=== PATIENT | female | born 1960 | race Caucasian/White ===

== ENCOUNTER → 2016-12-16 | Outpatient (CLI) | payer BC | LOC: MW.CHIM 07:48 | PROVIDERS: ATTEND Internal Medicine | DX: E78.00 Pure hypercholesterolemia, unspecified (principal); E03.9 Hypothyroidism, unspecified; K21.9 Gastro-esophageal reflux disease without esophagitis | CPT/HCPCS: 36415; 80061; 80076; 84439; 84443 ==

== ENCOUNTER → 2017-02-04 | Outpatient (CLI) | payer BC ==
--- NOTE | 2017-02-04 17:18 | MY ---
EXAMINATION: Bilateral digital mammography utilizing CAD. HISTORY: Screening exam. Comparison is made to previous studies dated 01/25/2016, 09/26/2014, 013. FINDINGS: Bilateral extremity dense breast tissue. There are stable calcifications noted bilateral ly. There is a single view asymmetry noted within the subareolar to slightly inner right breast. Oth erwise, no suspicious calcifications, masses or architectural distortions. No pathologic appearing lymph nodes, no abnormal skin thickening or nipple inversion. Other CAD highlighted regions appear normal at this time. IMPRESSION: BI-RADS category 0 - Incomplete study. Right breast diagnostic is needed for further evaluation. THE FALSE-NEGATIVE RATE OF MAMMOGRAM IS APPROXIMATELY 10%. MANAGEMENT OF A PALPABLE ABNORMALITY MUST BE BASED UPON CLINICAL GROUNDS. SENSITIVITY FOR DETECTION OF ABNORMALITIES IN DENSE BREASTS IS LOW. NOTE: A letter will be sent to the patient regarding findings. [facility] -- ALEKSANDR Yeboah [phone] - FAX [phone]
== END | disposition home or self-care (01) ==
LOC: MW.MAM 09:08
PROVIDERS: ATTEND Internal Medicine
DX: Z12.31 Encounter for screening mammogram for malignant neoplasm of breast (principal)
CPT/HCPCS: G0202; G0202-26

== ENCOUNTER → 2017-02-17 | Outpatient (CLI) | payer BC, OTHER ==
--- NOTE | 2017-02-17 14:18 | US ---
EXAMINATION: Right digital diagnostic mammogram and targeted ultrasound. HISTORY: Abnormal screening. Comparison is made to previous studies dated 02/04/2017, 01/25/2016, 015. FINDINGS: A right LM view was obtained and a single compression image was obtained in the CC projec tion. The previously visualized single view asymmetry within the deep subareolar right breast on the CC view minimally persists with spot compression. Numerous round, fairly well circumscribed asymmet ankur are noted within the very dense breast tissue. There are several groupings of stable calcificat ions noted within the right breast. Sonographic images of the right breast demonstrated numerous hypoechoic areas. Several ill-defined, however, continuous appearing hypoechoic areas are noted within the subareolar to 12 o'clock positio n. These demonstrate no internal color Doppler flow and demonstrate mild posterior acoustic enhancem ent. There is an oval cystic hypoechoic structure at the 12 o'clock position measuring 1.1 x 0.5 cm with an adjacent 0.9 x 0.7 cm cystic space. There is a rounded 1 x 0.9 cm hypoechoic mass with posterior acoustic enhancement at the 12 o'clock to 1 o'clock position of the right breast which likely corres ponds to the mammogram abnormality. This demonstrates posterior acoustic enhancement and no internal color Doppler flow. IMPRESSION: BI-RADS category III - probably benign. Extensive fibrocystic changes with several comp pricila cystic structures within the right breast. Followup in six months with a right breast diagnostic study is recommended. Alternatively, these are accessible to ultrasound-guided aspiration/biopsy. THE FALSE-NEGATIVE RATE OF MAMMOGRAM IS APPROXIMATELY 10%. MANAGEMENT OF A PALPABLE ABNORMALITY MUST BE BASED UPON CLINICAL GROUNDS. SENSITIVITY FOR DETECTION OF ABNORMALITIES IN DENSE BREASTS IS LOW. NOTE: A letter will be sent to the patient regarding findings. [facility] -- ALEKSANDR Yeboah [phone] - FAX [phone]
== END ==
LOC: MW.MAM 09:54
PROVIDERS: ATTEND Internal Medicine
DX: R92.8 Other abnormal and inconclusive findings on diagnostic imaging of breast (principal)
CPT/HCPCS: 76642; G0206

== ENCOUNTER → 2017-02-19 | Outpatient (CLI) | payer BC, OTHER | END | disposition home or self-care (01) | LOC: MW.CHIM 10:41 | PROVIDERS: ATTEND Internal Medicine | DX: E78.00 Pure hypercholesterolemia, unspecified (principal); E03.9 Hypothyroidism, unspecified; R92.8 Other abnormal and inconclusive findings on diagnostic imaging of breast | CPT/HCPCS: 36415; 85025; 85730 ==

== ENCOUNTER → 2017-03-03 | Outpatient (CLI) | payer BC, OTHER ==
--- NOTE | 2017-03-03 13:42 | US ---
EXAMINATION: Ultrasound guided right breast cyst aspiration HISTORY: Abnormal findings COMPARISON: Ultrasound dated 02/17/2017 TECHNIQUE: The procedure, risks, and benefits were discussed with the patient. Informed consent was obtained. The overlying area was sterilely prepped and draped. 1% lidocaine was administered for loc al anesthesia. Using ultrasound guidance the small 1 cm complex cyst noted at the T2 3:00 position o f the right breast was aspirated using a 22-gauge spinal needle. The cyst completely resolved follow ing aspiration. This contained a right parietal material which was sent for cytology. Additional sma ll cyst was aspirated at the approximate 12:00 position. This contained light green cloudy material which was discarded. IMPRESSION: Successful ultrasound-guided right breast cyst aspiration.
== END ==
LOC: MW.US 09:25
PROVIDERS: ATTEND Internal Medicine
DX: R92.8 Other abnormal and inconclusive findings on diagnostic imaging of breast (principal)
CPT/HCPCS: 19000-RT; 76942-26-RT; 76942-RT; 88173

== ENCOUNTER 2017-06-18 16:34 | Observation (INO) | payer BC ==
[2017-06-18] MEDS ORDERED: Sodium Chloride 0.9% 2.5 ML Syringe FLUSH PRN (16:44)
[2017-06-18] MEDS ORDERED: Sodium Chloride 0.9% 10 ML Syringe FLUSH PRN (16:44)
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
[2017-06-18] MEDS ORDERED: Aspirin 325 MG Tab PO ONE (16:56)
[2017-06-18] MEDS ORDERED: Famotidine 20 MG/2 ML SDV IVPUSH ONE (17:35)
[2017-06-18 17:56] LABS: CHLORIDE,CL 108 mmol/L (98-110); SODIUM,NA 143 mmol/L (136-146)
[2017-06-18] MEDS ORDERED: Albuterol 6.7 GM Inhaler INH PRN (19:57)
[2017-06-18] MEDS ORDERED: Acetaminophen 325 MG Tab PO PRN (19:58)
[2017-06-18] MEDS ORDERED: Ondansetron 4 MG/2 ML SDV IVPUSH PRN (19:58)
[2017-06-18] MEDS ORDERED: Magnesium Sulfate/Water 2 GM in Premix Bag 1 BAG IV ONE (20:00)
[2017-06-18] MEDS ORDERED: Potassium Chloride 20 MEQ Tab.ER PO ONE (20:00)
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
[2017-06-19] MEDS ORDERED: Levothyroxine 50 MCG Tab PO SCH (07:30)
[2017-06-19] MEDS ORDERED: Pantoprazole 40 MG Tab.CR PO SCH (09:00)
--- NOTE | 2017-06-19 09:21 | CR ---
EXAM DATE: 06/18/17 PATIENT'S AGE: 57 Patient: AYDEN CABRERA Facility: [place], [place] Site . Site : [id number] Study: XRay Chest [id number]/31/2017 5:21:35 PM Ordering Physician: Doctor Oh Final Report: INDICATION: Irregular heart rate. TECHNIQUE: Chest radiograph 1 view COMPARISON: 03/17/2017. FINDINGS: Cardiovascular and mediastinum: The heart silhouette is normal in size and morphology. The mediastinum is normal in appearance. Lungs and pleural spaces: Both lungs are unremarkable in appearance. No sign of pleural effusion seen. No pneumothorax is identified. Bones and soft tissues: No significant findings. IMPRESSION: 1. No acute cardiopulmonary disease is seen. Dictated by Rc Harris MD @ 06/18/2017 6:12:51 PM Dictated by: Rc Harris MD @ 06/18/2017 18:12:57 (Electronic Signature) Report Signed by Proxy. [facility]
[2017-06-19] MEDS ORDERED: Sodium Chloride 0.9% 500 ML IV SCH (11:30)
[2017-06-19] MEDS ORDERED: Fluticasone Propionate Nasal Spray 16 GM Bottle NASBOTH SCH (12:45)
[2017-06-19 13:53] VITALS: BP 109/59
== END 2017-06-19 13:55 | disposition home or self-care (01) ==
LOC: MW.ED 16:34 → MW.MS 17:36 → UNDOADMOB 17:36
PROVIDERS: ADMIT Internal Medicine; ATTEND Internal Medicine
DX: R00.2 Palpitations (principal); I49.3 Ventricular premature depolarization; I48.91 Unspecified atrial fibrillation; J45.909 Unspecified asthma, uncomplicated; K59.09 Other constipation; E03.9 Hypothyroidism, unspecified; Z88.1 Allergy status to other antibiotic agents; Z88.8 Allergy status to other drugs, medicaments and biological substances; Z91.048 Other nonmedicinal substance allergy status; Z79.899 Other long term (current) drug therapy; Z98.84 Bariatric surgery status; Z90.711 Acquired absence of uterus with remaining cervical stump; Z98.890 Other specified postprocedural states; Z82.49 Family history of ischemic heart disease and other diseases of the circulatory system
CPT/HCPCS: 36415; 71010; 80053; 81001; 83735; 84484; 85025; 87086; 93005; 96374; 96375; 99285; A9270; G0378; J2405; J3475; J7040; 99282

== ENCOUNTER 2017-10-28 14:04 | Emergency (ER) | payer BC ==
[2017-10-28] MEDS ORDERED: Sodium Chloride 0.9% 2.5 ML Syringe FLUSH PRN (14:17)
[2017-10-28] MEDS ORDERED: Sodium Chloride 0.9% 10 ML Syringe FLUSH PRN (14:17)
[2017-10-28] MEDS ORDERED: Aspirin 81 MG Tab.Chew PO ONE (14:17)
[2017-10-28 15:03] LABS: CHLORIDE,CL 108 mmol/L (98-110); SODIUM,NA 142 mmol/L (136-146)
[2017-10-28] MEDS ORDERED: Ondansetron 4 MG/2 ML SDV IVPUSH ONE (15:40)
--- NOTE | 2017-10-28 15:47 | CR ---
EXAMINATION: Portable chest radiograph. HISTORY: Shortness of breath. FINDINGS: The trachea is midline. The cardiomediastinal silhouette is within normal limits. No pulmonary infilt rates, effusions or pneumothorax. Osseous structures appear unremarkable. IMPRESSION: No acute cardiopulmonary process.
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
[2017-10-28 17:43] VITALS: BP 114/66
== END 2017-10-28 17:28 | disposition home or self-care (01) ==
LOC: MW.ED 14:04
DX: R11.2 Nausea with vomiting, unspecified (principal); R19.7 Diarrhea, unspecified; E03.9 Hypothyroidism, unspecified; Z88.8 Allergy status to other drugs, medicaments and biological substances; Z79.899 Other long term (current) drug therapy; Z88.1 Allergy status to other antibiotic agents
CPT/HCPCS: 36415; 71045; 80053; 84443; 84484; 85025; 96374; 99285; A9270; J2405; 99284

== ENCOUNTER 2018-04-30 21:49 | Emergency (ER) | payer BC ==
[2018-04-30] MEDS ORDERED: Sodium Chloride 0.9% 1,000 ML IV ONE (22:03)
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
[2018-04-30 22:59] LABS: CHLORIDE,CL 103 mmol/L (98-107); SODIUM,NA 137 mmol/L (136-145)
[2018-04-30] MEDS ORDERED: HYDROmorphone 1 MG/ML Syringe IVPUSH ONE (23:36)
[2018-04-30] MEDS ORDERED: Ondansetron 4 MG/2 ML SDV IVPUSH ONE (23:38)
[2018-05-01 00:10] VITALS: BP 132/76
--- NOTE | 2018-05-03 15:06 | CR ---
EXAM DATE: 04/30/18 PATIENT'S AGE: 58 Patient: AYDEN CABRERA Facility: [place], [place] Site . Site : 1960 Study: XRay Chest [id number]/13/2018 10:38:56 PM Ordering Physician: Jorden Silva Final Report: INDICATION: Fever TECHNIQUE: Chest radiograph 1 view COMPARISON: 10/28/2017 FINDINGS: Moderate degradation of image quality noted due to body habitus. Mediastinum: The mediastinum is normal in appearance. The heart silhouette is normal in size and morphology. Left port catheter has been placed with the tip in the SVC. Lungs: Both lungs are unremarkable in appearance. No sign of pleural effusion seen. No pneumothorax is identified. Bones and soft tissue: Unremarkable for age. IMPRESSION: 1. No acute cardiopulmonary disease is seen. Dictated by Major Cavazos MD @ 04/30/2018 10:44:06 PM Dictated by: Major Cavazos MD @ 04/30/2018 22:44:12 (Electronic Signature) Report Signed by Proxy. MARY IMOGENE [facility]ASSETT HOSPITALVernon
== END 2018-05-01 00:11 | disposition home or self-care (01) ==
LOC: MW.ED 21:49
DX: D70.9 Neutropenia, unspecified (principal); R50.81 Fever presenting with conditions classified elsewhere; E03.9 Hypothyroidism, unspecified; Z88.1 Allergy status to other antibiotic agents; Z79.899 Other long term (current) drug therapy; Z85.9 Personal history of malignant neoplasm, unspecified
CPT/HCPCS: 36415; 71045; 80053; 85025; 87040; 96374; 96375; 99283; J1170; J1642; J2405; J7040

== ENCOUNTER 2018-11-08 11:04 | Emergency (ER) | payer BC ==
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
[2018-11-08] MEDS ORDERED: diphenhydrAMINE 50 MG/ML SDV IVPUSH ONE (11:21)
[2018-11-08] MEDS ORDERED: Famotidine 20 MG/2 ML SDV IVPUSH ONE (11:21)
[2018-11-08] MEDS ORDERED: Sodium Chloride 0.9% 1,000 ML IV ONE (11:21)
[2018-11-08] MEDS ORDERED: methylPREDNISolone Sodium Succinate 125 MG/2 ML SDV IVPUSH ONE (11:21)
[2018-11-08 12:02] LABS: CHLORIDE,CL 108 mmol/L (98-107); SODIUM,NA 143 mmol/L (136-145)
[2018-11-08 12:41] VITALS: BP 103/60
== END 2018-11-08 12:38 | disposition home or self-care (01) ==
LOC: MW.ED 11:04
DX: L03.313 Cellulitis of chest wall (principal); L50.9 Urticaria, unspecified; T78.40XA Allergy, unspecified, initial encounter; C50.919 Malignant neoplasm of unspecified site of unspecified female breast; C79.9 Secondary malignant neoplasm of unspecified site; Z88.8 Allergy status to other drugs, medicaments and biological substances; Z88.1 Allergy status to other antibiotic agents; Z79.899 Other long term (current) drug therapy
CPT/HCPCS: 36415; 80053; 85025; 96361; 96374; 96375; 99283; J1200; J2930; J3490; J7040